=== PATIENT | male | born 1985 | race Two or more races ===

== ENCOUNTER 2020-08-01 12:32 | Inpatient (IN) | payer MEDICAID, OTHER ==
[~2020-08-01] VITALS: Ht 162.6 cm; Wt 71.5 kg
[2020-08-01 13:24] LABS: Basophils # (auto) 0.1 10 ^3/uL (0-0.2); Eosinophils # (auto) 0.1 10 ^3/uL (0-0.8); Eosinophils % (auto) 2.1 % (0.0-7.0); Hematocrit 35.3 % (41.0-53.0); Hemoglobin 11.6 g/dL (13.5-17.5); Lymphocytes # (auto) 1.1 10 ^3/uL (0.4-5.4); Lymphocytes % (auto) 22.8 % (10.0-50.0); Mean Corpuscular Hemoglobin 28.1 pg (28.0-32.0); Mean Corpuscular Hgb Conc. 32.7 g/dL (32.0-36.0); Mean Corpuscular Volume 86.1 fL (80.0-100.0); Monocytes # (auto) 0.4 10 ^3/uL (0-1.3); Monocytes % (auto) 7.7 % (0.0-12.0); Neutrophils # (auto) 3.3 10 ^3/uL (1.6-8.6); Neutrophils % (auto) 66.4 % (37.0-80.0); Nucleated Red Blood Cells % 0.1 %; Red Blood Cells 4.11 10^6/uL (4.5-5.90); Red Cell Distribution Width 17.9 % (11.8-14.3)
[2020-08-01 13:41] LABS: Albumin 3.6 g/dL (3.4-5.0); Calcium 7.9 mg/dL (8.5-10.1); Potassium 4.7 mmol/L (3.5-5.1)
[2020-08-01 13:49] LABS: Bilirubin, Total 0.7 mg/dL (0.2-1.0); Total Protein 7.1 g/dL (6.4-8.2)
[2020-08-01] MEDS ORDERED: cloNIDine HCL 0.1 MG TAB PO ONE (14:30)
[2020-08-01] MEDS ORDERED: amLODIPine BESYLATE 5 MG TAB PO ONE (16:15)
[2020-08-01] MEDS ORDERED: NITROGLYCERIN 0.4 MG SL TAB SL PRN ×2 (18:15→19:15)
[2020-08-01] MEDS ORDERED: MORPHINE SULF INJ 2 MG/ML SYRINGE 1ML IV PRN ×3 (18:15→19:15)
[2020-08-01] MEDS ORDERED: hydrALAZINE HCL 20 MG/ML VL IV PRN (18:30)
[2020-08-01] MEDS ORDERED: hydrALAZINE HCL 20 MG/ML VL IV ONE (18:30)
[2020-08-01] MEDS ORDERED: LABETALOL HCL 5 MG/ML 4ML SYRINGE IV ONE (18:30)
[2020-08-01] MEDS ORDERED: NIFEdipine ER 30 MG TAB PO ONE (19:15)
[2020-08-01] MEDS ORDERED: LORazepam 0.5 MG TAB PO PRN (19:15)
[2020-08-01] MEDS ORDERED: DOCUSATE SOD 100 MG CAP PO PRN (19:15)
[2020-08-01] MEDS ORDERED: HYDROcodone-ACET 5/325MG TAB PO PRN (19:15)
[2020-08-01] MEDS ORDERED: ALUM & MAG HYDROX-SIMETH LIQ(MAALOX) 30 ML PO PRN (19:15)
[2020-08-01] MEDS ORDERED: ONDANSETRON HCL 4 MG/2 ML VIAL IV PRN (19:15)
[2020-08-01] MEDS ORDERED: ACETAMINOPHEN 325 MG TAB PO PRN (19:15)
[2020-08-01] MEDS ORDERED: ALBUTEROL SULF 2.5 MG/0.5ML(0.5%) NEB SOLN NEB ONE (19:30)
[2020-08-01] MEDS ORDERED: IPRATROPIUM BROM 0.5 MG/2.5ML INH SOL NEB ONE (19:30)
[2020-08-01] MEDS ORDERED: MONTELUKAST SODIUM 10 MG TAB PO ONE (19:30)
[2020-08-01 20:40] VITALS: BP 123/80
[2020-08-01 21:40] VITALS: BP 153/88
[2020-08-01] MEDS: IPRATROPIUM BROM 0.5 MG/2.5ML INH SOL NEB SCH (22:04)
[2020-08-01 22:43] VITALS: BP 145/78
[2020-08-01] MEDS ORDERED: PNEUMOCOCCAL VACC POLYS 25 MCG/0.5 ML VIAL IM ONE (23:15)
[2020-08-02] VITALS (7 sets, daily range): BP systolic 123–153; BP diastolic 55–82
[2020-08-02] MEDS: IPRATROPIUM BROM 0.5 MG/2.5ML INH SOL NEB SCH ×6 (02:00→22:16)
[2020-08-02] MEDS: MINOXIDIL 10 MG TAB PO SCH ×3 (04:28→22:55)
[2020-08-02] MEDS: SODIUM CHLOR 0.9% PF (SALINE LOCK) 10ML VIAL/SYR IV SCH ×4 (04:30→22:54)
[2020-08-02 05:55] LABS: Basophils # (auto) 0.1 10 ^3/uL (0-0.2); Basophils % (auto) 1.7 % (0.0-2.0); Eosinophils # (auto) 0.1 10 ^3/uL (0-0.8); Eosinophils % (auto) 3.5 % (0.0-7.0); Hematocrit 37.5 % (41.0-53.0); Hemoglobin 12.6 g/dL (13.5-17.5); Lymphocytes # (auto) 1.2 10 ^3/uL (0.4-5.4); Lymphocytes % (auto) 30.3 % (10.0-50.0); Mean Corpuscular Hemoglobin 28.5 pg (28.0-32.0); Mean Corpuscular Hgb Conc. 33.7 g/dL (32.0-36.0); Mean Corpuscular Volume 84.7 fL (80.0-100.0); Monocytes # (auto) 0.3 10 ^3/uL (0-1.3); Monocytes % (auto) 7.3 % (0.0-12.0); Neutrophils # (auto) 2.3 10 ^3/uL (1.6-8.6); Neutrophils % (auto) 57.2 % (37.0-80.0); Nucleated Red Blood Cells % 0.1 %; Red Blood Cells 4.43 10^6/uL (4.5-5.90); Red Cell Distribution Width 18.2 % (11.8-14.3)
[2020-08-02] MEDS: BUMETANIDE 1 MG TAB PO SCH ×2 (06:09→18:05)
[2020-08-02 06:16] LABS: Albumin 3.3 g/dL (3.4-5.0); Calcium 7.7 mg/dL (8.5-10.1); Magnesium 2.5 mg/dL (1.6-2.6); Potassium 4.6 mmol/L (3.5-5.1)
[2020-08-02 06:22] LABS: % Iron Saturation 22.8 % (20-55)
[2020-08-02 06:24] LABS: Bilirubin, Total 0.6 mg/dL (0.2-1.0); Total Protein 6.5 g/dL (6.4-8.2)
[2020-08-02] MEDS: NIFEdipine ER 30 MG TAB PO SCH (12:25)
[2020-08-02] MEDS: MONTELUKAST SODIUM 10 MG TAB PO SCH (22:55)
[2020-08-03] MEDS: IPRATROPIUM BROM 0.5 MG/2.5ML INH SOL NEB SCH ×6 (02:08→22:00)
[2020-08-03 05:00] VITALS: BP 126/65
[2020-08-03] MEDS: SODIUM CHLOR 0.9% PF (SALINE LOCK) 10ML VIAL/SYR IV SCH ×3 (05:07→22:18)
[2020-08-03] MEDS: BUMETANIDE 1 MG TAB PO SCH ×2 (05:08→18:02)
[2020-08-03] MEDS: ALBUTEROL SULF 2.5 MG/0.5ML(0.5%) NEB SOLN NEB PRN ×3 (06:52→15:18)
[2020-08-03 08:00] VITALS: BP 134/62
[2020-08-03 09:03] VITALS: BP 134/62
[2020-08-03] MEDS: NIFEdipine ER 30 MG TAB PO SCH (10:36)
[2020-08-03] MEDS: MINOXIDIL 10 MG TAB PO SCH ×2 (10:36→22:00)
[2020-08-03 13:00] VITALS: BP 127/57
[2020-08-03] MEDS ORDERED: SODIUM CHL 0.9% 1000 ML BAG XX ONE (14:15)
[2020-08-03 17:00] VITALS: BP 137/62
[2020-08-03 22:00] VITALS: BP 136/62
[2020-08-03] MEDS: MONTELUKAST SODIUM 10 MG TAB PO SCH (22:00)
[2020-08-04] MEDS: IPRATROPIUM BROM 0.5 MG/2.5ML INH SOL NEB SCH ×3 (02:01→10:34)
[2020-08-04 05:00] VITALS: BP 135/83
[2020-08-04] MEDS: SODIUM CHLOR 0.9% PF (SALINE LOCK) 10ML VIAL/SYR IV SCH (05:23)
[2020-08-04] MEDS: BUMETANIDE 1 MG TAB PO SCH (05:24)
[2020-08-04] MEDS: ALBUTEROL SULF 2.5 MG/0.5ML(0.5%) NEB SOLN NEB PRN ×2 (07:43→10:33)
[2020-08-04 08:00] VITALS: BP 144/74
[2020-08-04] MEDS ORDERED: SACUBITRIL-VALSARTAN 24mg/26mg TAB PO SCH (10:00)
[2020-08-04] MEDS: MINOXIDIL 10 MG TAB PO SCH (10:19)
[2020-08-04] MEDS: NIFEdipine ER 30 MG TAB PO SCH (10:19)
[2020-08-04 11:14] VITALS: BP 144/74
== END 2020-08-04 12:30 | disposition home or self-care (01) | DRG 199 ==
LOC: EDBD 12:32 → ER 12:32 → TELE-CENTR 19:22
PROVIDERS: ADMIT Hospitalist; ATTEND Family Medicine
PROC: 5A1D70Z Performance of Urinary Filtration, Intermittent, Less than 6 Hours Per Day (ICD-10-PCS; principal; 2020-08-03)
DX: I16.1 Hypertensive emergency (principal); I50.33 Acute on chronic diastolic (congestive) heart failure; N18.6 End stage renal disease; N25.81 Secondary hyperparathyroidism of renal origin; J44.9 Chronic obstructive pulmonary disease, unspecified; Z20.822 Contact with and (suspected) exposure to COVID-19; D63.1 Anemia in chronic kidney disease; I13.2 Hypertensive heart and chronic kidney disease with heart failure and with stage 5 chronic kidney disease, or end stage renal disease; Z99.2 Dependence on renal dialysis; Z79.899 Other long term (current) drug therapy
CPT/HCPCS: 36415; 80053; 80061; 82306; 82550; 82962; 83036; 83540; 83550; 83735; 83880; 83970; 84100; 84443; 84484; 85025; 87040; 87081; 87426; 90935; 93005; 94640; 96374; 96376; G0378; J3490